=== PATIENT | male | born 1955 | race Two or more races ===

== ENCOUNTER 2023-06-23 16:05 | Inpatient (IN) | payer OTHER ==
[~2023-06-23] VITALS: Ht 177.8 cm; Wt 73.5 kg
[2023-06-23] MEDS ORDERED: ZESTRIL20 MG PO (16:41)
[2023-06-23] MEDS ORDERED: GLUMETZA500 MG PO (16:41)
[2023-06-23] MEDS ORDERED: TOPROL XL50 M1 PO (16:41)
== END 2023-06-25 06:56 | disposition designated cancer center or children's hospital (05) | DRG 281 ==
LOC: ER 16:05 → EDBD 16:05 → ER 17:00 → ICU-2 19:48
PROVIDERS: General Practice; ADMIT Internal Medicine; ATTEND Internal Medicine
PROC: B24BZZZ Ultrasonography of Heart with Aorta (ICD-10-PCS; principal; 2023-06-23)
DX: I21.3 ST elevation (STEMI) myocardial infarction of unspecified site (principal); I13.0 Hypertensive heart and chronic kidney disease with heart failure and stage 1 through stage 4 chronic kidney disease, or unspecified chronic kidney disease; I50.20 Unspecified systolic (congestive) heart failure; N17.9 Acute kidney failure, unspecified; E87.5 Hyperkalemia; Z79.4 Long term (current) use of insulin; E78.5 Hyperlipidemia, unspecified; E11.65 Type 2 diabetes mellitus with hyperglycemia; E11.22 Type 2 diabetes mellitus with diabetic chronic kidney disease; N18.9 Chronic kidney disease, unspecified